=== PATIENT | female | born 1985 | race Caucasian/White ===

== ENCOUNTER 2022-10-23 09:56 | Outpatient (OUT) | payer OTHER, SELFPAY ==
--- NOTE | 2022-10-23 | XR_ITS ---
The [address] [address] Patient Name: JIM VIDES MRN: [id number] date: 1985 Sex: F Assigned Patient Location: [facility] Current Patient Location: [facility] Accession/Order Number: [id number] Exam Date: 10/23/2022 10:05 Report Date: 10/23/2022 23:19 At the request of: JAGRUTI RODRIGUEZ Procedure: XR foot LT min 3V EXAM: XR foot LT min 3V HISTORY: LEFT FOOT PAIN COMPARISON: None. TECHNIQUE: 3 view study FINDINGS: Overall bony architecture is normal. Joint spaces are well-maintained. Plantar and early posterior calcaneal enthesophytes are noted. XR/XR foot LT min 3V IMPRESSION: Calcaneal enthesophytes. No acute bone or joint abnormality is otherwise identified. Electronically authenticated by: Brian QUIROZ Date: 10/23/2022 23:19
== END 2022-10-23 09:57 | disposition home or self-care (01) ==
PROVIDERS: Visit Provider Physician Assistant
DX: M79.672 Pain in left foot (principal)
CPT/HCPCS: 73630

== ENCOUNTER 2022-11-12 10:34 | Outpatient (OUT) | payer OTHER, SELFPAY ==
--- NOTE | 2022-11-12 | XR_ITS ---
The [address] [address] Patient Name: JIM VIDES MRN: [id number] date: 1985 Sex: F Assigned Patient Location: [facility] Current Patient Location: [facility] Accession/Order Number: [id number] Exam Date: 11/12/2022 10:45 Report Date: 11/12/2022 13:48 At the request of: JULIEN STEIN Procedure: XR foot LT min 3V PROCEDURE: XR foot LT min 3V DATE: 11/12/2022 9:45 AM CDT COMPARISONS: 10/23/2022 CLINICAL INDICATION: LEFT FOOT PAIN FINDINGS: There is no evidence of fractures or other acute osseous abnormalities. There is a small spur off the posterior inferior os calcis, stable. There is a small spur off the posterior os calcis at the attachment of the Achilles, stable. There is mild first metatarsal phalangeal degenerative change, stable. XR/XR foot LT min 3V IMPRESSION: Left foot radiographs show no evidence of acute abnormalities. Electronically authenticated by: CONSTANTINE DANIEL Date: 11/12/2022 13:48
== END 2022-11-12 10:35 | disposition home or self-care (01) ==
LOC: RAD 10:34
PROVIDERS: Visit Provider Podiatrist Foot & Ankle Surgery
DX: M79.672 Pain in left foot (principal)
CPT/HCPCS: 73630